=== PATIENT | female | born 1975 | race Caucasian/White ===

== ENCOUNTER 2016-11-05 16:24 | Emergency (ER) | payer BC ==
[~2016-11-05] VITALS: Ht 175.3 cm; Wt 124.7 kg
[2016-11-05 16:26] VITALS: Ht 175.3 cm; Wt 124.7 kg
--- OUTSIDE RECORDS SUMMARY | 2016-11-05 16:29 | XMS REPORT | Continuity of Care Document ---
Author Author [facility]. Organization [facility] Address Unknown Phone Unavailable Allergies Active Description Code Type Severity Reaction Onset Reported/Identified Relationship to Patient Clinical Status Yes Codeine 1550 Drug Allergy N/A N/A 10/13/2012 Yes sulfa Drug Allergy N/A N/A 10/13/2012 Yes Codeine Drug Allergy 10/13/2012 Confirmed or Verified Yes sulfa Drug Allergy 10/13/2012 Confirmed or Verified Medications Problems Date Dx Coded Attending Type Code Diagnosis Diagnosed By 10/09/2012 MAYE CAMARENA 780.4 DIZZINESS AND GIDDINESS 10/13/2012 LOLA SCHAFFER 461.9 ACUTE SINUSITIS NOS 10/13/2012 LOLA SCHAFFER 785.1 PALPITATIONS 06/27/2014 AUGUSTIN CAMACHO MD 493.90 ASTHMA, UNSPECIFIED 06/27/2014 AUGUSTIN CAMACHO MD 786.2 COUGH Procedures Code Description [place] [address] METABOLIC PANEL TOTAL CA MAYE CAMARENA 10/09/2012 17079 ASSAY THYROID STIM HORMONE MAYE CAMARENA 10/09/2012 44834 COMPLETE CBC, AUTOMATED MAYE CAMARENA 10/09/2012 38100 ROUTINE VENIPUNCTURE LOLA SCHAFFER 10/13/2012 25794 COMPREHEN METABOLIC PANEL LOLA SCHAFFER 10/13/2012 13505 COMPLETE CBC, AUTOMATED LOLA SCHAFFER 10/13/2012 41045 FIBRIN DEGRADATION, VTE LOLA SCHAFFER 10/13/2012 89333 EMERGENCY DEPT VISIT LOLA SCHAFFER 10/13/2012 82782 DETECT AGENT NOS, DNA, AMP AUGUSTIN CAMACHO MD 06/27/2014 Results Test Result Range CBC - 10/09/12 16:50 Granulocyte # 5.7 x10^3 3.0-7.0 Granulocyte % 59.5 % 50-70 HCT 45.0 % 37.0-47.0 HGB 14.4 G/DL 12.0-16.0 Lymph # 3.1 x10^3 1.0-4.0 Lymph % 33.4 % 20-50 MCH 27.2 PG 27.0-31.0 MCHC 32.0 G/DL 32.0-36.0 MCV 85 FL 81-99 Burke # 0.6 x10^3 0.0-0.8 Burke % 7.1 % 1.0-9.0 MPV 7.1 FL 6.0-10.0 Platelet 377 x10^3 150-400 RBC 5.30 x10^3 4.20-5.40 RDW 14.0 % 10.0-13.0 WBC 9.4 x10^3 4.8-10.8 Basic Metabolic Panel - 10/09/12 16:50 Sodium 138 MMOLL 134-145 Potassium 3.4 MMOLL 3.6-5.0 Chloride 98 MMOLL 98-107 CO2 27 MMOLL 22-30 Glucose 90 MG/DL 75-110 BUN 19 MG/DL 9-20 Creatinine .8 MG/DL 0.8-1.7 Calcium 9.4 MG/DL 8.4-10.2 TSH - 10/09/12 16:50 TSH 2.35 UIUML 0.50-6.00 CBC - 10/13/12 18:35 Granulocyte # 8.5 x10^3 3.0-7.0 Granulocyte % 80.6 % 50-70 HCT 47.6 % 37.0-47.0 HGB 15.3 G/DL 12.0-16.0 Lymph # 1.7 x10^3 1.0-4.0 Lymph % 16.7 % 20-50 MCH 27.6 PG 27.0-31.0 MCHC 32.1 G/DL 32.0-36.0 MCV 86 FL 81-99 Burke # 0.2 x10^3 0.0-0.8 Burke % 2.7 % 1.0-9.0 MPV 6.7 FL 6.0-10.0 Platelet 400 x10^3 150-400 RBC 5.55 x10^3 4.20-5.40 RDW 14.3 % 10.0-13.0 WBC 10.4 x10^3 4.8-10.8 Comprehensive Metabolic Panel - 10/13/12 18:35 Sodium 136 MMOLL 134-145 Potassium 4.1 MMOLL 3.6-5.0 Chloride 96 MMOLL 98-107 CO2 26 MMOLL 22-30 Glucose 129 MG/DL 75-110 BUN 18 MG/DL 9-20 Creatinine 1.0 MG/DL 0.8-1.7 Calcium 9.3 MG/DL 8.4-10.2 T Bili .6 MG/DL 0.2-1.3 T. Protein 8.5 G/DL 6.3-8.2 A/G Ratio 1.2 RATIO Albumin 4.6 G/DL 3.5-5.0 Alk Phos 98 U/L 38-126 ALT 50 U/L 11-66 AST 37 U/L 14-36 D-Dimer - 10/13/12 18:35 D-Dimer NEG Negative Bordetella Pertussis PCR - 06/29/14 07:07 Bordetella Pertussis PCR Collected: 06/27/14 15:35 Encounters ACCT No. Visit Date/Time Discharge Status Pt. Type Provider Facility Loc./Unit Complaint [id number] 06/27/2014 15:40:00 06/27/2014 15:40:00 DIS Outpatient LILIA BETH MD, AUGUSTIN Owen [facility] [id number] 10/13/2012 17:58:00 10/13/2012 19:35:00 DIS Emergency JOHNY SANTAMARIA, LOLA Joiner [facility] ER [id number] 10/10/2012 10:43:00 10/10/2012 10:43:00 DIS Outpatient MIREYA SANTAMARIA, MAYE [facility]
--- OUTSIDE RECORDS SUMMARY | 2016-11-05 16:29 | XMS REPORT ---
Author Author [facility] Organization [facility] Address [address] [place] [address] Phone [phone] Summary purpose CCDA Sent to [facility] Chief Complaint and Reason for Visit Admit Diagnosis 1 COUGH Problem list No authorized problems tracked for continuity of care are available for this visit. Encounters No authorized problems tracked for encounter diagnoses are available for this visit. Medications No home medications recorded for this patient visit Allergies, adverse reactions, alerts Allergen Category Ingredient Status Reaction Severity Onset sulfa Drug sulfa Active Codeine Drug Codeine Active Immunizations No immunizations recorded for this patient visit Relevant diagnostic tests and/or laboratory data RESULTS Reference [facility] [id number] B. Pertussis by PCR Source: Nasopharynx swab Collected: 06/27/14 15:35 .Site: Received : 06/27/14 20:01 .Order#: [id number] Bordetella pertussis by PCR FINAL 06/28/14 11:48 F . This test was developed and its performance characteristics .determined by [facility]. This is not considered a .research procedure, and results may be used for diagnostic .purposes. It has not been cleared or approved by the U.[place]. .Food and Drug Administration. .-- -- .Negative - Bordetella pertussis DNA was not detected by . polymerase chain reaction (PCR). .F: Performed at: [facility], [address] [place] [address], [facility] FOR RESULTS: * - NEW RESULT - RESULT WAS MODIFIED AFTER FINAL STATUS SET Bordetella pertussis by PCR performed at [address] [address] Retail Sales Specialist Jorge Walker MD History of procedures Procedure Code Code Type Description Date Performed Performing Physician 29417 CPT-4 DETECT AGENT NOS DNA AMP 06-27-2014 AUGUSTIN BETH Functional status No functional or cognitive status observations are available for this visit. Vital signs No authorized vital signs are available for this visit. Social history No Social History or smoking status observations were recorded for this visit. ( Unknown if ever smoked.) Treatment Plan No treatment plan text is available for this visit. Hospital discharge instructions No discharge instruction text is available for this visit.
--- OUTSIDE RECORDS SUMMARY | 2016-11-05 16:29 | XMS REPORT ---
Author Author [facility]. Organization [facility] Address [address] [place] [address] Phone [phone] Summary purpose CCDA Sent to [facility] Chief Complaint and Reason for Visit No authorized Reason for Visit (Admitting Diagnosis) is available for this visit. Problem list No authorized problems tracked for [...] Relevant diagnostic tests and/or laboratory data RESULTS Chemistry Group [id number] Sodium 137 Potassium 3.9 Chloride L 96 CO2 26 Glucose H 136 BUN 13 Creatinine .8 Total Protein 7.8 Albumin 4.3 Calcium 9.9 Alk Phos 98 AST H 63 ALT H 85 T Bili .7 A/G Ratio 1.2 Amylase 38 Lipase 132 History of procedures No procedures recorded for this patient visit. Functional status No functional or cognitive status [...]
--- OUTSIDE RECORDS SUMMARY | 2016-11-05 16:29 | XMS REPORT ---
Author Author [facility]. Organization [facility] Address [address] [place] [address] Phone [phone] Summary purpose CCDA Sent to [facility] Chief Complaint and Reason for Visit No [...] visit Relevant diagnostic tests and/or laboratory data No authorized results are available for this patient visit History of procedures No procedures recorded for [...]
--- NOTE | 2016-11-05 16:33 | ERPDOC ---
Departure Disposition Decision Date: Nov 05, 2016 Disposition Decision Time: 18:17 (SHAYY GOMES APRN) Disposition: 01 DISCHARGED HOME, SELF-CARE Impression Impression (SHAYY GOMES APRN) Impression: Primary Impression: Chest wall pain Additional Impression: GERD (gastroesophageal reflux disease) Esophagitis presence: without esophagitis Qualified Codes: K21.9 - Gastro- esophageal reflux disease without esophagitis Severity: Moderate (SHAYY GOMES APRN) Condition: Improved Seen By: Mid-level only (SHAYY GOMES APRN) Patient Instructions: Chest Wall Pain (ED), Gastroesophageal Reflux Disease (ED ) Problems/Meds/Labs Reviewed?: Yes Medications reviewed and manag: Yes (SHAYY GOMES APRN) Additional Instructions: Your labs, EKG and chest x-ray were normal today. You may take 800mg of ibuprofen with food for chest wall pain or OTC aleve with food. Take omeprazole 20mg daily. You should take Pepcid or Zantac for the first 4 days after starting omeprazole. If your symptoms are not improving by next week follow with your PCP for re- evaluation, sooner if worsting symptoms. Follow treatment plan. Follow up care ordered?: Yes Mental Status: Alert, Oriented (SHAYY GOMES APRN) HPI - Chest Pain General Stated Complaint: CHEST PAIN Time Seen by Provider: 16:28 Source: patient (SHAYY GOMES APRN) Time Seen by Provider: 16:28 (EDUAR OVERTON DO) HPI - Chest Pain Initial Comments 41 YO F presents to ED with report of left lateral anterior chest pain that started at 1000 today. Says she took an 81mg ASA and pain improved but did not go away. Pain became worse at 1600 today. Patient says that she had same pain last evening. Patient says pain is a pressure/ache. Reports that she has a hx. of GERD which has "been kicking up since yesterday". States she took an omeprazole last evening. Patient denies fever, chills, SOA, cough, tenderness in calves or chest wall strain. Patient admits to sleeping on her left side and sleeps with shoulder tuck under her. says patient often holds her phone with left shoulder and bending neck to left side. Pain/Severity Scale: Now: 9/10 (chest and epigastric) Activities at Onset/Context: rest Location: anterior L 1 - Reports pain Quality: aching, pressure Associated Symptoms: abdominal pain, DENIES: back pain, diaphoresis, dizziness , edema, fast HR, fatigue, fever/chills, headache, heartburn, irregular HR, nausea/vomiting, rash, shortness of breath, slow HR, swelling/lump in chest, syncope, weakness Chest Pain Radiation: neck, back Aspirin Treatment Today: 81 mg x 4, provided by ED, provided at home (SHAYY GOMES APRN) Allergies: Coded Allergies: Sulfa (Sulfonamide Antibiotics) (Verified Allergy, Unknown, 11/05/16) codeine (Verified Allergy, Unknown, 11/05/16) Past History Past Medical History Metabolic: hypertension, other (metabolic syndrome) Cardiac: DENIES: angina Respiratory: asthma GI: GERD Female: DENIES: renal insufficiency Neurological: DENIES: seizures Hematologic: DENIES: anemia Psychological: DENIES: depression (SHAYY GOMES APRN) Surgical History General: other (partial thyroidectomy) Reproductive/: Joint: foot (SHAYY GOMES APRN) Family History Family PMH: FOUND: DC (paternal grandfather) (SHAYY GOMES APRN) Social History Sexuality: male partner Household Members: spouse, family Current Occupational Status: employed (SHAYY GOMES APRN) Review of Systems Constitutional Constitutional: DENIES: chills, dizziness, fever, weakness (SHAYY GOMES APRN) Eyes General: DENIES: erythema, exudate Lids/Accessories: DENIES: erythema, swelling (SHAYY GOMES APRN) ENMT Ears: DENIES: pain Sinuses: DENIES: congestion, rhinorrhea Mouth/Throat: DENIES: sore throat (SHAYY GOMES APRN) Cardiovascular Cardiac: chest pain, see HPI, DENIES: murmur Rhythm/Rate: DENIES: palpitations (SHAYY GOMES APRN) Pulmonary Respiratory: DENIES: cough, dyspnea (SHAYY GOMES APRN) GI Upper Abdomen: pain (epigastric), see HPI, DENIES: nausea, vomiting Lower Abdomen: DENIES: blood in stool, diarrhea, pain (SHAYY GOMES APRN) General: DENIES: dysuria, pain (SHAYY GOMES APRN) Musculoskeletal General: DENIES: joint pain, pain, tenderness (MIREYASHAYY A DUMBWAITER OPERATOR) Integumentary Skin: DENIES: color change, itching, rash (GOMESFRANCHESKAS A DUMBWAITER OPERATOR) Neurological General: DENIES: ataxia, change in strength, numbness, paralysis/paresis, weakness (GOMES,SHAYY A DUMBWAITER OPERATOR) Psychiatric Psychiatric: DENIES: anxiety, depression, nervousness (GOMES,SHAYY A DUMBWAITER OPERATOR) Physical Exam General General Nourishment: well nourished, well developed, adult General Body Habitus: well groomed (GOMESFRANCHESKAS A DUMBWAITER OPERATOR) Vitals and Pain Weight: Kilograms: Height (feet): Height (inches): Triage Pain Scale: (FRANCHESKA GOMESS A DUMBWAITER OPERATOR) Eyes (brief) Eyes Brief: found: EOMI (GOMESSHAYY A DUMBWAITER OPERATOR) ENMT (brief) ENMT Brief: NOT FOUND: nasal exudate, nasal swelling (GOMESSHAYY A DUMBWAITER OPERATOR) Neck (brief) Neck: FOUND: trachea midline, NOT FOUND: adenopathy, tenderness, thyromegaly ( GOMESSHAYY A DUMBWAITER OPERATOR) Respiratory (brief) Respiratory: FOUND: clear all [place], equal bilaterally, symmetrical, tenderness (TTP over left lateral ICS 3-5) (GOMES,SHAYY A DUMBWAITER OPERATOR) Cardiovascular (brief) Cardiac: FOUND: regular rate, regular rhythm (GOMES,SHAYY A DUMBWAITER OPERATOR) Abdomen Inspection: NOT FOUND: distention Palpation: FOUND: soft, tender (mild TTP epigastric area), NOT FOUND: hepatomegaly, involuntary guarding, rebound, splenomegaly, voluntary guarding Auscultation: FOUND: normoactive (x4) (GOMES,SHAYY A DUMBWAITER OPERATOR) Musculoskeletal (brief) Musculoskeletal Brief: NOT FOUND: deformity, loss of motion (GOMES,SHAYY A DUMBWAITER OPERATOR) Integumentary (brief) Integumentary Brief: FOUND: dry, pink, warm (GOMES,SHAYY A DUMBWAITER OPERATOR) Neurologic (brief) Neurological Brief: FOUND: motor-no gross deficits, sensory-no gross deficits ( GOMES,SHAYY A DUMBWAITER OPERATOR) Psychiatric (brief) Psychiatric Brief: FOUND: alert, normal affect, oriented (GOMES,SHAYY A DUMBWAITER OPERATOR ) Differential Diagnoses Considering: Acute DC, Anxiety/Panic, Angina, Costochondritis, Esophageal Spasm , GERD, Pericarditis, Pneumonia, Pulmonary Edema, Muscle Spasm (GOMES,SHAYY A DUMBWAITER OPERATOR) Progress Results/Orders Medications Current ED Medications Aspirin (ASA) 324 mg O ONCE PO Last administered on 11/05/16 16:54; Start at 16:45; Stop 11/05/16 at 16:46; Status DC Nitroglycerin (Nitrostat) 0.4 mg Q5MIN PRN SL CHEST PAIN; Start 11/05/16 at 16: 45; Stop 11/05/16 at 20:39; Status DC Pharmacy Profile Note (/Maalox/ Lidocaine Soln) 30 ml O ONCE PO Last administered on 11/05/16 17:36; Start 11/05/16 at 17:30; Stop 11/05/16 at 17:31 ; Status DC Ketorolac Tromethamine (Toradol) 30 mg O ONCE IV Last administered on 17:38; Start 11/05/16 at 17:30; Stop 11/05/16 at 17:31; Status DC (EDUAR OVERTON DO) Progress Progress Labs unremarkable Troponin < 0.012 D-dimer , 150 Patient reports improvement of pain after GI cocktail and toradol. I feel patient's chest pain is consistent with chest wall pain since patient did have reproducible pain to palpation on exam over area she pointed to where she was having pain. Patient also has symptoms consistent with GERD. I discussed labs, EKG, CXR and treatment plan with patient and answered questions. Patient verbalized understanding of treatment plan, follow up with PCP and return precautions. (SHAYY GOMES APRN) EKG EKG : Rate: 60-100 Rhythm: sinus [place]: normal QRS: normal Intervals: normal ST/T: normal Interpreted by: signing physician (Dr. Overton) (SHAYY GOMES APRN) Xray Xray : Xray: CXR PA/Lat (no acute cardiopulmonary findings (Dr. Sarkar)) (SHAYY GOMES APRN) SHAYY GOMES APRN Nov 05, 2016 16:33 EDUAR OVERTON DO Nov 10, 2016 20:27 Test 11/05/16 16:50 White Blood Count 10.0T/MM3 Red Blood Count 4.99M/MM3 Hemoglobin 13.2GM/DL Hematocrit 40.7% Mean Corpuscular Volume 81.6UM3 Mean Corpuscular Hemoglobin 26.5UUG Mean Corpuscular Hemoglobin Concent 32.4GM/DL RDW Standard Deviation 45.1FL Platelet Count 347T/MM3 Mean Platelet Volume 10.1UM3 Immature Granulocyte % (Auto) 0.2% Neutrophils (%) (Auto) 53.8% Lymphocytes (%) (Auto) 37.2% Monocytes (%) (Auto) 4.2% Eosinophils (%) (Auto) 4.1% Basophils (%) (Auto) 0.5% Absolute Immature Granulocyte (auto 0.02T/MM3 Absolute Neutrophils (auto) 5.4T/MM3 Absolute Lymphocytes (auto) 3.7T/MM3 Absolute Monocytes (auto) 0.4T/MM3 Absolute Eosinophils (auto) 0.4T/MM3 Absolute Basophils (auto) 0.1T/MM3 Prothromb Time International Ratio 1.09 D-Dimer < 150NG/ML Turbidity < 20 Sodium Level 143MEQ/L Potassium Level 3.8MEQ/L Chloride Level 102MEQ/L Carbon Dioxide Level 28MEQ/L Anion Gap 13MEQ/L Blood Urea Nitrogen 15.0MG/DL Creatinine 0.8MG/DL Glomerular Filtration Rate Calc 79 BUN/Creatinine Ratio 19RATIO Glucose Level 117MG/DL Calculated Osmolality 277MOSM/KG Calcium Level 9.0MG/DL Total Bilirubin 0.70MG/DL Icterus Index < 2 Aspartate Amino Transf (AST/SGOT) 31U/L Alanine Aminotransferase (ALT/SGPT) 45U/L Alkaline Phosphatase 100U/L Troponin I < 0.012ng/ml [id number] Natriuretic Peptide 39PG/ML Total Protein 7.8G/DL Albumin 4.1G/DL Globulin 3.7G/DL Albumin/Globulin Ratio 1.1RATIO Human Chorionic Gonadotropin, Qual Negative Chemistry Specimen Hemolysis < 15 Medications Current ED Medications Aspirin (ASA) 324 mg O ONCE PO Last administered on 11/05/16 16:54; Start at 16:45; Stop 11/05/16 at 16:46; Status DC Nitroglycerin (Nitrostat) 0.4 mg Q5MIN PRN SL CHEST PAIN; Start 11/05/16 at 16: 45 Pharmacy Profile Note (/Maalox/ Lidocaine Soln) 30 ml O ONCE PO Last administered on 4/22/17at 17:36; Start 11/05/16 at 17:30; Stop 11/05/16 at 17:31 ; Status DC Ketorolac Tromethamine (Toradol) 30 mg O ONCE IV Last administered on t 17:38; Start 11/05/16 at 17:30; Stop 11/05/16 at 17:31; Status DC Progress Progress Labs unremarkable Patient reports improvement of pain after GI cocktail and toradol. EKG EKG : Rate: 60-100 Rhythm: sinus [place]: normal QRS: normal Intervals: normal ST/T: normal Interpreted by: signing physician (Dr. Overton) Xray Xray : Xray: CXR PA/Lat (no acute cardiopulmonary findings (Dr. Sarkar)) SHAYY GOMES APRN Nov 05, 2016 16:33
[2016-11-05] MEDS ORDERED: NITROGLYCERIN 0.4 MG SUBLINGUAL TABLET SL PRN (16:45)
[2016-11-05] MEDS ORDERED: ASPIRIN 81 MG CHEWABLE TABLET PO ONE (16:45)
--- NOTE | 2016-11-05 16:52 | NUR ---
PROVIDER Malcom GOMES APRN AT BEDSIDE FOR EXAM.
[2016-11-05 17:00] LABS: BASOPHILS # (AUTO) 0.1 T/MM3 (0-0.2); BASOPHILS % (AUTO) 0.5 % (0-2); EOSINOPHILS # (AUTO) 0.4 T/MM3 (0-0.5); EOSINOPHILS % (AUTO) 4.1 % (0-4); HCT - HEMATOCRIT 40.7 % (36-46); HGB - HEMOGLOBIN 13.2 GM/DL (12-16); IMMATURE GRANULOCYTE # (AUTO) 0.02 T/MM3 (0.00-0.03); IMMATURE GRANULOCYTE % (AUTO) 0.2 % (0.0-0.5); LYMPHOCYTES # (AUTO) 3.7 T/MM3 (1-4.8); LYMPHOCYTES % (AUTO) 37.2 % (23-45); MEAN CORPUSCULAR HGB 26.5 UUG (26-34); MEAN CORPUSCULAR HGB CONC(MCHC 32.4 GM/DL (31-37); MEAN CORPUSCULAR VOLUME 81.6 UM3 (80-100); MEAN PLATELET VOLUME 10.1 UM3 (9.4-12.4); MONOCYTES # (AUTO) 0.4 T/MM3 (0-0.8); MONOCYTES % (AUTO) 4.2 % (0-9.0); NEUTROPHILS #(AUTO)-ABSOLUTE 5.4 T/MM3 (1.8-7.7); NEUTROPHILS % (AUTO) 53.8 % (33-66); RED BLOOD COUNT 4.99 M/MM3 (4.00-5.20)
[2016-11-05] MEDS ORDERED: METF500T4 PO (17:07)
[2016-11-05] MEDS ORDERED: SPIR50TA3 PO (17:07)
[2016-11-05] MEDS ORDERED: HYDR12.54 PO (17:07)
[2016-11-05 17:09] LABS: ALBUMIN 4.1 G/DL (3.5-5.0); ALBUMIN/GLOBULIN RATIO 1.1 RATIO (1.1-2.2); ALKALINE PHOSPHATASE 100 U/L (38-126); ALT (SGPT) 45 U/L (9-52); ANION GAP 13 MEQ/L (5-15); AST (SGOT) 31 U/L (14-36); BUN/CREATININE RATIO 19 RATIO (6-26); CHLORIDE 102 MEQ/L (98-107); CO2 - CARBON DIOXIDE 28 MEQ/L (22-30); CREATININE 0.8 MG/DL (0.7-1.2); GLOMERULAR FILTRATION RATE 79; GLUCOSE 117 MG/DL (65-110); POTASSIUM 3.8 MEQ/L (3.6-5); SODIUM 143 MEQ/L (134-144); TOTAL PROTEIN 7.8 G/DL (6.3-8.2)
[2016-11-05] MEDS ORDERED: LOSA50TA2 PO (17:13)
[2016-11-05] MEDS ORDERED: OMEP20CA10 PO (17:13)
[2016-11-05] MEDS ORDERED: SERT50TA PO (17:13)
[2016-11-05] MEDS ORDERED: ATOR20TA PO (17:13)
[2016-11-05] MEDS ORDERED: ALBU8.5H INH (17:13)
[2016-11-05] MEDS ORDERED: ASPI81TA2 PO (17:13)
[2016-11-05] MEDS ORDERED: CETI-115 PO (17:13)
[2016-11-05] MEDS ORDERED: FLUT1DIS3 ORAL INH (17:13)
[2016-11-05 17:17] LABS: PROBNP 39 PG/ML (0-175)
[2016-11-05 17:23] LABS: INR 1.09 (0.76-1.04); PROTHROMBIN TIME 11.9 SEC (9.31-12.49)
[2016-11-05] MEDS ORDERED: G.I. COCKTAIL 30ml PO ONE (17:30)
[2016-11-05] MEDS ORDERED: KETOROLAC 30mg/ml INJECTION IV ONE (17:30)
--- NOTE | 2016-11-05 17:47 | NUR ---
XRAY PT TO XRAY AT THIS TIME.
--- NOTE | 2016-11-05 17:55 | NUR ---
RETURN PT RETURNED FROM XRAY AT THIS TIME.
--- OUTSIDE RECORDS SUMMARY | 2016-11-05 18:00 | XMS REPORT | Continuity of Care Document ---
Author Author [facility]. Organization [facility] Address Unknown Phone Unavailable Allergies [...] Procedures Code [place] [address] METABOLIC PANEL TOTAL CA MAYE CAMARENA 10/09/2012 15080 ASSAY THYROID STIM HORMONE MAYE CAMARENA 10/09/2012 60517 COMPLETE CBC, AUTOMATED MAYE CAMARENA 10/09/2012 35616 ROUTINE VENIPUNCTURE LOLA SCHAFFER 10/13/2012 49418 COMPREHEN METABOLIC PANEL LOLA SCHAFFER 10/13/2012 95481 COMPLETE CBC, AUTOMATED LOLA SCHAFFER 10/13/2012 62983 FIBRIN DEGRADATION, VTE LOLA SCHAFFER 10/13/2012 69530 EMERGENCY DEPT VISIT LOLA SCHAFFER 10/13/2012 07352 DETECT AGENT NOS, DNA, AMP AUGUSTIN CAMACHO MD 06/27/2014 Results Test Result Range CBC - 10/09/12 16:50 Granulocyte # 5.7 x10^3 3.0-7.0 Granulocyte % 59.5 % 50-70 HCT 45.0 % 37.0-47.0 HGB 14.4 G/DL 12.0-16.0 Lymph # 3.1 x10^3 1.0-4.0 Lymph % 33.4 % 20-50 MCH 27.2 PG 27.0-31.0 MCHC 32.0 G/DL 32.0-36.0 MCV 85 FL 81-99 Jackson # 0.6 x10^3 0.0-0.8 Jackson % 7.1 % 1.0-9.0 MPV 7.1 FL [...] 32.1 G/DL 32.0-36.0 MCV 86 FL 81-99 Jackson # 0.2 x10^3 0.0-0.8 Jackson % 2.7 % 1.0-9.0 MPV 6.7 FL [...] Status Pt. Type Provider Facility Loc./Unit Complaint [id number] 06/27/2014 15:40:00 06/27/2014 15:40:00 DIS Outpatient LILIA BETH MD, AUGUSTIN Owen [facility] [id number] 10/13/2012 17:58:00 10/13/2012 19:35:00 DIS Emergency JOHNY SANTAMARIA, LOLA Joiner [facility] ER [id number] 10/10/2012 10:43:00 10/10/2012 10:43:00 DIS Outpatient MIREYA SANTAMARIA, MAYE [facility]
[2016-11-05 18:37] VITALS: BP 117/71; PULSE 71; RESP 21; TEMP 97.9; O2SAT 98
--- NOTE | 2016-11-05 18:37 | NUR ---
DISCHARGE WRITTEN INSTRUCTIONS REVIEWED AND SENT WITH PT. PT VERBALIZES UNDERSTANDING OF DI, DENIES QUESTIONS. REPORTS CHEST DISCOMFORT CURRENTLY 08/26. PT AMBULATES OUT OF ER WITH STEADY GAIT ACCOMP BY SPOUSE AT THIS TIME.
--- NOTE | 2016-11-06 09:13 | DI ---
INDICATION: ITS.REASON: Intermittent chest pain since yesterday PROCEDURE: CHEST 2-VIEWS UPRIGHT (PA \T\ LAT) Encounter: Initial COMPARISON: None FINDINGS: The lungs are clear without evidence of focal abnormal airspace opacity. There is no pleural effusion or pneumothorax. The heart size, mediastinal contours and pulmonary vascularity are within normal limits. There is no significant skeletal abnormality. IMPRESSION: No acute cardiopulmonary disease. .
== END 2016-11-05 18:37 | disposition home or self-care (01) ==
LOC: ED 16:24
DX: R07.89 Other chest pain (principal); K21.9 Gastro-esophageal reflux disease without esophagitis; I10 Essential (primary) hypertension
CPT/HCPCS: 36415; 71020; 80053; 83880; 84484; 84703; 85025; 85379; 85610; 93005; 96374; 99284; J1885; J7999